=== PATIENT | male | born 1995 | race African-American/Black ===

== ENCOUNTER 2016-06-23 11:33 | Emergency (ER) | payer OTHER ==
[~2016-06-23] VITALS: Ht 177.8 cm; Wt 68.2 kg
[2016-06-23] VITALS (8 sets, daily range): BP systolic 103–132; BP diastolic 53–83; PULSE 60–86; TEMP 36.4; O2SAT 95–100; Ht 177.8 cm; Wt 68.2 kg
[2016-06-23] MEDS ORDERED: LORAZEPAM 2 MG/ML 1 ML VIAL IV STA (12:07)
[2016-06-23] MEDS ORDERED: KETAMINE HCL INJ 50 MG/ML 10 ML VIAL IV STA (12:33)
[2016-06-23] MEDS ORDERED: METOCLOPRAMIDE HCL INJ 5 MG/ML 2 ML VIAL IV STA (12:33)
[2016-06-23] MEDS ORDERED: PROPOFOL IV EMULSION 10 MG/ML 20 ML VIAL IV STA (12:33)
[2016-06-23] MEDS ORDERED: MoRPHine SULFATE 4 MG/ML 1 ML CARP\\VIAL IV ONE (12:45)
--- NOTE | 2016-06-23 12:59 | EMERGENCY ROOM VISIT NOTE ---
Pre-Mod Sedation Assessment General Date of Moderate Sedation: Jun 23, 2016. Vital Signs: Vital Signs Past 12 Hours Date Time Temp Pulse Resp B/P Pulse Ox O2 Delivery O2 Flow Rate FiO2 06/23/16 12:30 60 16 148/91 100 Room Air 06/23/16 12:26 60 18 131/87 100 Room Air 06/23/16 11:37 36.4 62 16 126/74 100 Room Air Review Cardiovascular: regular rate, rhythm, no edema, no gallop, no JVD, no murmur, normal peripheral pulses Abdomen: normal bowel sounds, non tender, soft, no organomegaly, no pulsatile mass, normal rectal exam, occult blood negative Lungs: chest non-tender, lungs clear, normal breath sounds, no respiratory distress, no accessory muscle use Airway Class: I Pre-Sedation Airway Assessment Oral Cavity: Dental Abnormalities Able to Visualize Vocal Cords: Yes Short Thick Neck: Yes Hx of Sleep Apnea: Yes Smoking Status: Never Smoker Mallampati Classification: Class I (Sft palate,uvula,fauces,pillar) ASA Classification: Class I Procedure Planning Contraindications-for Mod Sed: None Yes Notes The planned sedation has been discussed with the patient and consent obtained. I have identified the patient, determined the appropriateness of sedation and have assessed the patient immediately prior to the procedure. All medicine(s) and interventions are by my order.
--- NOTE | 2016-06-23 13:00 | EMERGENCY ROOM VISIT NOTE ---
Post-Moderate Sedation Plan General Date of Moderate Sedation Jun 23, 2016. Vital Signs: Vital Signs Past 12 Hours Date Time Temp Pulse Resp B/P Pulse Ox O2 Delivery O2 Flow Rate FiO2 06/23/16 12:54 68 16 129/80 100 Nasal Cannula 2.0 06/23/16 12:30 60 16 148/91 100 Room Air 06/23/16 12:26 60 18 131/87 100 Room Air 06/23/16 11:37 36.4 62 16 126/74 100 Room Air Review - Discharge Plan Post Moderate Sedation Plan: On clinical assessment, the patient appears to have tolerated the conscious sedation without complications. Patient is recovering as anticipated. Patient will continue to be monitored by nursing and may be discharged when conscious sedation discharge criteria are met.
--- NOTE | 2016-06-23 13:03 | EMERGENCY ROOM VISIT NOTE ---
ED Visit Note First contact with patient: 11:55 Procedural Sedation Indication jaw dislocated. Total time: 20 minutes. Written consent was obtained after the risks and benefits were explained to the pt, including, but not limited to aspiration, allergic reaction, breathing difficulties, cardiac complications, vomiting, pain, event recall, bleeding, and /or infection. Pre-sedation examination and paperwork completed. The patient was on 100% oxygen via NRB prior to the procedure. Continous end tidal CO2 monitoring, pulse oximetry, and cardiac monitoring were utilized. Suction, airway equipment, medications, respiratory equipment, and appropriate personnel were prepared prior to the initiation of the procedure. A time out was taken. Sedation was achieved utilizing 35 mg of Propofol x2, 35 mg Ketamine. After I observed the patient had reached the appropriate level of sedation the main procedure was performed without complication. Sedation was discontinued and the monitoring continued. The patient recovered quickly from the effects of the medication without complication or adverse event. Vital Signs Date Time Temp Pulse Resp B/P Pulse Ox O2 Delivery O2 Flow Rate FiO2 06/23/16 12:54 68 16 129/80 100 Nasal Cannula 2.0 06/23/16 12:30 60 16 148/91 100 Room Air 06/23/16 12:26 60 18 131/87 100 Room Air 06/23/16 11:37 36.4 62 16 126/74 100 Room Air Medications Administered Medications (Trade) Dose Ordered Sig/Yaron Route Start Time Stop Time Status Last Admin Dose Admin Lorazepam (Ativan Inj) 2 mg NOW STAT IV 06/23/16 12:07 06/23/16 12:08 DC 06/23/16 12:25 2 MG Morphine Sulfate (MoRPHine SULFATE INJ) 4 mg NOW ONCE IV 06/23/16 12:45 06/23/16 12:46 DC 06/23/16 12:40 4 MG Metoclopramide HCl (Reglan Inj) 10 mg NOW STAT IV 06/23/16 12:33 06/23/16 12:35 DC 06/23/16 12:40 10 MG Departure Information Referrals No Doctor, Assigned (PCP) Patient Instructions My [facility]
[2016-06-23] MEDS ORDERED: HYDR-5688 PO (15:05)
[2016-06-23] MEDS ORDERED: ALPR-411 PO (15:10)
[2016-06-23] MEDS ORDERED: NORCO 5/325MG HOME PACK PO ONE (15:15)
--- NOTE | 2016-06-24 13:16 | EMERGENCY ROOM VISIT NOTE ---
History First contact with patient: 11:55 Chief Complaint: FACIAL PAIN/INJURY Stated Complaint: JAW INJURY History of Present Illness The patient is a 20 year old male who presents to the Emergency Room with complaints of jaw pain for the past 45 minutes. 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 The patient has had one similar episode in the past that did require a jaw reduction. The patient does not have other complaints and rates his discomfort a 9/10. He considers himself otherwise usually healthy. He has not had anything [id number] for his discomfort. Review of Systems More than 10 systems were reviewed and otherwise negative with the exception of history of present illness. Past Medical/Surgical History No chronic medical disease Family History No pertinent family history Social History Smoking Status: Never Smoker Occupation Status: employed Current/Historical Medications Scheduled PRN Alprazolam (Xanax), 0.5 MG PO UD PRN for Anxiety Hydrocodone/Acetaminophen 5MG/325MG ([place] 5MG/325MG), 1 TABLET PO Q6 PRN for Pain Allergies Coded Allergies: No Known Allergies (Unverified , 06/23/16) Physical Exam Vital Signs Date Time Temp Pulse Resp B/P Pulse Ox O2 Delivery O2 Flow Rate FiO2 06/23/16 15:50 60 16 132/71 99 Room Air 06/23/16 14:33 88 110/66 06/23/16 14:12 78 16 133/79 Room Air 06/23/16 13:43 57 16 157/47 92 Room Air 06/23/16 13:36 86 18 125/83 99 Room Air 06/23/16 13:22 94 16 137/74 100 Nasal Cannula 2.0 06/23/16 13:06 83 119/74 100 Nasal Cannula 2.0 06/23/16 13:00 74 16 119/70 100 Nasal Cannula 2.0 06/23/16 12:59 70 16 125/72 100 Nasal Cannula 2.0 06/23/16 12:55 67 12 129/80 100 Nasal Cannula 5.0 06/23/16 12:54 68 16 129/80 100 Nasal Cannula 2.0 06/23/16 12:53 77 10 111/67 100 Nasal Cannula 5.0 06/23/16 12:50 66 14 104/69 95 Nasal Cannula 5.0 06/23/16 12:48 65 16 103/64 98 Nasal Cannula 2.0 06/23/16 12:44 60 18 111/53 100 Room Air 06/23/16 12:30 60 16 148/91 100 Room Air 06/23/16 12:26 60 18 131/87 100 Room Air 06/23/16 11:37 36.4 62 16 126/74 100 Room Air Pain Rating (0-10): 0 Physical Exam VITALS: Vitals are noted on the nurse's note and reviewed by myself. Vital signs stable. GENERAL: Well-developed, well-nourished, black male who is in moderate discomfort secondary to his complaint. HEAD: Normocephalic atraumatic. MOUTH: Mucous membranes moist. Tonsils are not enlarged. Pharynx without erythema, blood, or exudate. Uvula midline. Airway patent. Jaw is with obvious dislocation. Patient is not able to close the mouth. Dentition is in good repair. No abscess or infection noted. NECK: Supple without nuchal rigidity. No lymphadenopathy. No thyromegaly. Cervical spine is nontender. HEART: Regular rate and rhythm without murmurs gallops or rubs. LUNGS: Clear to auscultation bilaterally without wheezes, rales or rhonchi. No retractions or accessory muscle use. Medical Decision & Procedures Medications Administered Medications (Trade) Dose Ordered Sig/Yaron Route Start Time Stop Time Status Last Admin Dose Admin Lorazepam (Ativan Inj) 2 mg NOW STAT IV 06/23/16 12:07 06/23/16 12:08 DC 06/23/16 12:25 2 MG Morphine Sulfate (MoRPHine SULFATE INJ) 4 mg NOW ONCE IV 06/23/16 12:45 06/23/16 12:46 DC 06/23/16 12:40 4 MG Metoclopramide HCl (Reglan Inj) 10 mg NOW STAT IV 06/23/16 12:33 06/23/16 12:35 DC 06/23/16 12:40 10 MG Acetaminophen/ Hydrocodone Bitart ([place] 5/325mg Home Pack) 1 homepack UD ONCE PO 06/23/16 15:15 06/23/16 15:16 DC 06/23/16 15:15 1 HOMEPACK ED Course Physical exam and history were performed. Nursing notes and EMR were reviewed. Patient appears to have dislocated his jaw after yawning. I discussed options of care with the patient, and he would like his jaw reduced. He prefers to avoid conscious sedation if possible. IV access was established and the patient was given 2 mg IV Ativan. After administration of the medication the patient was much more comfortable, and reduction was attempted. The reduction was not successful after Ativan. The case was then discussed with my attending physician, Dr. Mccabe, and in shared decision making with the patient we did elect to perform sedation. Risks were discussed with the patient, who did consent to the procedure. Please see Dr. Mccabe's dictation for specifics regarding the conscious sedation. The patient was adequately sedated, and utilizing an inferior force on the posterior aspect of the molars the jaw was successfully reduced. The patient quickly came out of sedation without difficulty. He tolerated the procedure well. The patient was monitored for another hour, and felt significantly improved after the procedure. The patient lives in [place], and will follow-up back home with oral maxillofacial. The patient will be given a short course of Vicodin for pain control. He was otherwise invited back to the ER with any new , worsening, or concerning symptoms. The chart was completed utilizing [employer] Speech Voice Recognition Software. Grammatical errors, random word insertions, pronoun errors, and incomplete sentences are an occasional consequence of this system due to software limitations, ambient noise, and hardware issues. Any formal questions or concerns about the content, text, or information contained within the body of this dictation should be directly addressed to the provider for clarification. . Medical Decision Differential diagnosis includes, but is not limited to: Sprain, strain, fracture , dislocation, subluxation, contusion, and others Impression Primary Impression: Dislocation of jaw Departure Information Dispostion Home / Self-Care Condition GOOD Prescriptions Hydrocodone/Acetaminophen 5MG/325MG ([place] 5MG/325MG) Tab 1 TABLET PO Q6 Y for Pain, #12 TAB For Initial Treatment Prov: Jesus Alberto Ramírez PA-C 06/23/16 Referrals No Doctor, Assigned (PCP) Forms Adult Anesthesia/Sedation, HOME CARE DOCUMENTATION FORM, Work Instructions, Additional Instructions: Patient was seen and evaluated today in the emergency department fo medical care. Return to work on 06/24/2016. IMPORTANT VISIT INFORMATION Patient Instructions My [facility] Additional Instructions You were seen and evaluated today on an emergency basis only. This is not a substitute for, or an effort to provide, complete comprehensive medical care. It is not possible to recognize and treat all injuries or illnesses in a single emergency department visit. For this reason it is recommended that you followup with your primary care physician back home for ongoing care and evaluation. For baseline pain relief you may alternate ibuprofen and acetaminophen every 4 hours for pain control. Take 600 mg ibuprofen (Advil) and then 4 hours later take 1000 mg acetaminophen (Tylenol). Do not take more than 3000 mg acetaminophen in a single day. [place] (hydrocodone/acetaminophen) 5/325 mg every 6 hours as needed for worsening breakthrough pain. Do not drink or drive on [place]. This medication will likely make you tired. Do not take [place] and Tylenol at the same time as both contain acetaminophen. [place] may cause constipation. You may wish to take an [id number] stool softener like Colace if this occurs. You are welcome to return to the emergency department anytime with new, worsening, or concerning symptoms. Work Instructions Additional Work Instructions: Patient was seen and evaluated today in the emergency department for medical care. Return to work on 06/24/2016.
== END 2016-06-23 16:05 | disposition home or self-care (01) ==
LOC: EDBD 11:33 → C.EDD 11:36 → C.EDC 16:05
DX: S03.03XA Dislocation of jaw, bilateral, initial encounter (principal); X50.1XXA Overexertion from prolonged static or awkward postures, initial encounter; Y92.89 Other specified places as the place of occurrence of the external cause